=== PATIENT | male | born 1970 | race American Indian/Alaskan Native ===

== ENCOUNTER 2017-04-02 02:22 | Emergency (ER) | payer SELFPAY ==
--- NOTE | 2017-04-02 03:14 | C.PDOC ---
History Of Present Illness 46 year old male presents to the ER with a complaint of a scaling rash to the scalp for approximately 5 weeks that has now moved to the nape of the neck, upper back, chest, and abdominal wall. Patient has seen numerous physicians in different ERs, was recently given hydrocortisone and benadryl but states it has not been helping. 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 He cannot come up with any exposures to anything besides hair dye that he uses. Denies chest pain or SOB. Chief Complaint (Nursing): Abnormal Skin Integrity History Per: Patient History/Exam Limitations: no limitations Onset/Duration Of Symptoms: Days Current Symptoms Are (Timing): Still Present Location Of Injury: Anterior: Abdomen, Chest, Posterior: Back, Neck Quality Of Symptoms: Itching Recent travel outside of the [place]: No Past Medical History Reviewed: Historical Data, Nursing Documentation, Vital Signs Vital Signs: Last Vital Signs Temp 97.8 F 04/02/17 04:14 Pulse 82 04/02/17 04:14 Resp 20 04/02/17 04:14 BP 117/64 04/02/17 04:14 Pulse Ox 99 04/02/17 04:14 Family History: States: Unknown Family Hx - Social History Hx Alcohol Use: Yes Hx Substance Use: Yes - Immunization History Hx Tetanus Toxoid Vaccination: No Hx Influenza Vaccination: No Hx Pneumococcal Vaccination: No Review Of Systems Constitutional: Negative for: Fever, Chills ENT: Negative for: Throat Swelling Respiratory: Negative for: Shortness of Breath, Wheezing Skin: Positive for: Rash Physical Exam - Physical Exam Appears: Non-toxic, No Acute Distress Skin: Warm, Dry, Rash (Raised scaling rash to neck, back, chest, and abdomen.) Head: Atraumatic, Normacephalic, No Swelling Eye(s): bilateral: Normal Inspection Oral Mucosa: Moist Neck: Normal, Supple Chest: Symmetrical, No Tenderness Cardiovascular: Rhythm Regular Respiratory: Normal Breath Sounds, No Accessory Muscle Use, No Rales, No Rhonchi , No Stridor, No Wheezing Gastrointestinal/Abdominal: Soft, No Tenderness Neurological/Psych: Oriented x3, Normal Speech ED Course And Treatment O2 Sat by Pulse Oximetry: 97 Medical Decision Making Medical Decision Making: Patient given Rx for stronger hydrocortisone cream and given clinic information for follow up. Disposition - Disposition Referrals: [facility] [Outside] Disposition: HOME/ ROUTINE Disposition Time: 03:11 Condition: GOOD Prescriptions: Hydrocortisone 2.5% 30 applic TOP BID #30 oint Instructions: Dyshidrotic Eczema (ED), Connective Tissue Disorders (ED) Forms: [employer] ([place]) - Clinical Impression Clinical Impression: Eczema, Chemical dermatitis - Scribe Statement The provider has reviewed the documentation as recorded by the Scribe Ky Humphreys All medical record entries made by the Scribe were at my direction and personally dictated by me. I have reviewed the chart and agree that the record accurately reflects my personal performance of the history, physical exam, medical decision making, and the department course for this patient. I have also personally directed, reviewed, and agree with the discharge instructions and disposition.
[2017-04-02 04:16] VITALS: BP 117/64; PULSE 82; RESP 20; TEMP 97.8
[2017-04-02 06:44] VITALS: O2SAT 97
== END 2017-04-02 04:15 | disposition home or self-care (01) ==
LOC: C.ER 02:22
DX: L25.3 Unspecified contact dermatitis due to other chemical products (principal)